=== PATIENT | male | born 1985 | race Two or more races ===

== ENCOUNTER 2024-02-16 16:06 | Emergency (ER) | payer MEDICAID ==
[~2024-02-16] VITALS: Ht 188 cm; Wt 136.1 kg
[2024-02-16] MEDS ORDERED: LORAZEPAM INJ 2 MG/ML VIAL ONE (17:25)
[2024-02-16] MEDS: LORAZEPAM 4 MG/ML VIAL IV ONE (17:29)
[2024-02-16 17:38] LABS: BASOPHILS % (AUTO) 0.7 % (0.0-2.0); EOSINOPHILS % (AUTO) 0.8 % (0.0-6.0); HEMATOCRIT 31 % (39-51); HEMOGLOBIN 9.8 g/dL (13.5-17.5); LYMPHOCYTES # (AUTO) 0.9 K/uL (0.8-4.8); LYMPHOCYTES % (AUTO) 16.6 % (20.0-44.0); MEAN CORPUSCULAR HEMOGLOBIN 28 PG (26.0-33.0); MEAN CORPUSCULAR HGB CONC 32 g/dl (31.0-36.0); MEAN CORPUSCULAR VOLUME 86 fL (80-96); MONOCYTES # (AUTO) 0.5 K/uL (0.1-1.30); MONOCYTES % (AUTO) 8.8 % (2.0-12.0); NEUTROPHILS % (AUTO) 73.1 % (43.0-81.0); PLATELET COUNT (AUTO) 264 K/uL (150-450); RED BLOOD CELL COUNT(AUTO) 3.56 MIL/uL (4.5-6.0); RED CELL DISTRIBUTION WIDTH 15.6 % (11.5-15.0); WHITE BLOOD COUNT (AUTO) 5.5 K/uL (4.3-11.0)
[2024-02-16 17:49] LABS: CALCIUM, SERUM 7.9 mg/dL (8.5-10.1); CARBON DIOXIDE 26 mmol/L (21-32); CHLORIDE 100 mmol/L (98-107); CREATININE 0.6 mg/dL (0.6-1.3); GLUCOSE 91 mg/dL (74-106); POTASSIUM 3.6 mmol/L (3.5-5.1); SODIUM SERUM 138 mmol/L (136-145); UREA NITROGEN, BLOOD 4 mg/dL (7-18)
[2024-02-16 19:21] VITALS: BP 124/74; TEMP 98; O2SAT 97
== END 2024-02-16 19:21 | disposition home or self-care (01) ==
LOC: ER 16:25
DX: R07.9 Chest pain, unspecified (principal); F41.9 Anxiety disorder, unspecified; F14.10 Cocaine abuse, uncomplicated; E11.9 Type 2 diabetes mellitus without complications; I10 Essential (primary) hypertension; J45.909 Unspecified asthma, uncomplicated; F17.200 Nicotine dependence, unspecified, uncomplicated; Z79.01 Long term (current) use of anticoagulants
CPT/HCPCS: 99285; 96374; 71045; 93005; 85025; 80048; 36415; 84484; J2060 ×2; J7060

== ENCOUNTER 2024-02-23 10:32 | Emergency (ER) | payer MEDICAID ==
[~2024-02-23] VITALS: Ht 188 cm; Wt 142.4 kg
[2024-02-23] MEDS ORDERED: ONDANSETRON 4 MG TAB.RAPDIS ONE (10:57)
[2024-02-23] MEDS: ONDANSETRON 4 MG TAB.RAPDIS SL ONE (10:58)
[2024-02-23] MEDS ORDERED: HALOPERIDOL LACTATE INJ 5 MG/ML VIAL ONE (11:33)
[2024-02-23 11:38] LABS: BASOPHILS % (AUTO) 0.8 % (0.0-2.0); EOSINOPHILS # (AUTO) 0.1 K/uL (0.0-0.7); EOSINOPHILS % (AUTO) 2.5 % (0.0-6.0); HEMATOCRIT 32 % (39-51); HEMOGLOBIN 10.4 g/dL (13.5-17.5); LYMPHOCYTES # (AUTO) 1.4 K/uL (0.8-4.8); MEAN CORPUSCULAR HEMOGLOBIN 27 PG (26.0-33.0); MEAN CORPUSCULAR HGB CONC 32 g/dl (31.0-36.0); MEAN CORPUSCULAR VOLUME 85 fL (80-96); MONOCYTES # (AUTO) 0.4 K/uL (0.1-1.30); MONOCYTES % (AUTO) 8.2 % (2.0-12.0); NEUTROPHILS % (AUTO) 60.5 % (43.0-81.0); PLATELET COUNT (AUTO) 264 K/uL (150-450); RED CELL DISTRIBUTION WIDTH 15.8 % (11.5-15.0); WHITE BLOOD COUNT (AUTO) 4.9 K/uL (4.3-11.0)
[2024-02-23] MEDS: HALOPERIDOL LACTATE INJ 5 MG/ML VIAL IV ONE (11:38)
[2024-02-23 11:54] LABS: APPEARANCE,URINE CLEAR (CLEAR); BILIRUBIN,URINE NEGATIVE (NEGATIVE); BLOOD, URINE NEGATIVE Ery/uL (NEGATIVE); COLOR,URINE YELLOW (YELLOW); KETONES,URINE NEGATIVE (NEGATIVE); LEUKOCYTE ESTERASE ,URINE NEGATIVE (NEGATIVE); NITRITE, URINE NEGATIVE (NEGATIVE); PROTEIN,URINE NEGATIVE (NEGATIVE); UGLUCOSE NEGATIVE (NEGATIVE); UROBILINOGEN,URINE 0.2 EU/dL (0.2)
[2024-02-23 12:01] LABS: INR 1.21 (0.91-1.10); PARTIAL THROMBOPLASTIN TIME 28.7 SEC (24.3-34.3); PROTHROMBIN TIME 12.7 SECS (9.2-11.1)
[2024-02-23 12:05] LABS: ALBUMIN 3.2 g/dL (3.4-5.0); BILIRUBIN,DIRECT 0.5 mg/dL (0.0-0.2); CALCIUM, SERUM 8.4 mg/dL (8.5-10.1); CREATININE 0.6 mg/dL (0.6-1.3); POTASSIUM 3.4 mmol/L (3.5-5.1); TOTAL PROTEIN, SERUM 8.9 g/dL (6.4-8.2)
[2024-02-23] MEDS: KETAMINE HCL(200MG/20ML) 10 MG/ML VIAL IV ONE (12:13)
[2024-02-23] MEDS ORDERED: KETOROLAC TROMETHAMINE 15 MG/ML VIAL ONE (13:54)
[2024-02-23] MEDS: KETOROLAC TROMETHAMINE 15 MG/ML VIAL IV ONE (13:59)
[2024-02-23 17:36] VITALS: BP 131/77; TEMP 98.8; O2SAT 98
[2024-02-23] MEDS ORDERED: PANT40TA2 PO (18:59)
[2024-02-23] MEDS ORDERED: TRIA1CAP20 PO (18:59)
[2024-02-23] MEDS ORDERED: GABA-532 PO (18:59)
[2024-02-23] MEDS ORDERED: PREG100C PO (18:59)
[2024-02-23] MEDS ORDERED: ENOX40DI SQ (18:59)
[2024-02-23] MEDS ORDERED: METH10TA2 PO (18:59)
[2024-02-23] MEDS ORDERED: TRAM50TA2 PO (18:59)
[2024-02-23] MEDS ORDERED: CARI350T PO (18:59)
[2024-02-23 21:24] LABS: AMPHETAMINE, URINE NEGATIVE (NEGATIVE); BARBITURATE, URINE NEGATIVE (NEGATIVE); BENZODIAZEPINE, URINE NEGATIVE (NEGATIVE); CANNABINOID, URINE NEGATIVE (NEGATIVE); OPIATE, URINE NEGATIVE (NEGATIVE); PHENCYCLIDINE SCREEN,URINE NEGATIVE (NEGATIVE)
[2024-02-23 21:26] LABS: COCCAINE, URINE POSITIVE (NEGATIVE)
== END 2024-02-23 21:55 | disposition home or self-care, planned readmission (81) ==
LOC: ER 10:54 → MED 21:44 → UNDOADMIN 21:44 → ER 21:55 → UNDODISIN 02-24
DX: R10.13 Epigastric pain (principal); R11.2 Nausea with vomiting, unspecified; F14.10 Cocaine abuse, uncomplicated; I10 Essential (primary) hypertension; E11.9 Type 2 diabetes mellitus without complications; J45.909 Unspecified asthma, uncomplicated; Z20.822 Contact with and (suspected) exposure to COVID-19
CPT/HCPCS: 99285; 74176; 96374; 96375; 87426; 85025; 80048; 83690; 80076; 36415; 85730; 80307; 81003; J1630; J7030; Q0162; J1885; G0378

== ENCOUNTER 2024-07-15 09:54 | Emergency (ER) | payer MEDICAID ==
[~2024-07-15] VITALS: Ht 185.4 cm; Wt 142.0 kg
[~2024-07-15 09:54] MED LIST: CARI350T PO; ENOX40DI SQ; GABA-532 PO; METH10TA2 PO; PANT40TA2 PO; PREG100C PO; TRAM50TA2 PO; TRIA1CAP20 PO
[2024-07-15] MEDS ORDERED: FOLIC ACID 1 MG TABLET ONE (10:30)
[2024-07-15] MEDS ORDERED: LORAZEPAM INJ 2 MG/ML VIAL ONE (10:31)
[2024-07-15 10:38] LABS: BASOPHILS % (AUTO) 0.6 % (0.0-2.0); EOSINOPHILS % (AUTO) 0.2 % (0.0-6.0); HEMATOCRIT 35 % (39-51); HEMOGLOBIN 11.1 g/dL (13.5-17.5); LYMPHOCYTES # (AUTO) 0.9 K/uL (0.8-4.8); LYMPHOCYTES % (AUTO) 13.3 % (20.0-44.0); MEAN CORPUSCULAR HEMOGLOBIN 25 PG (26.0-33.0); MEAN CORPUSCULAR HGB CONC 32 g/dl (31.0-36.0); MEAN CORPUSCULAR VOLUME 78 fL (80-96); MONOCYTES # (AUTO) 0.4 K/uL (0.1-1.30); MONOCYTES % (AUTO) 6.3 % (2.0-12.0); NEUTROPHILS # (AUTO) 5.4 K/uL (1.8-8.9); NEUTROPHILS % (AUTO) 79.6 % (43.0-81.0); PLATELET COUNT (AUTO) 208 K/uL (150-450); RED BLOOD CELL COUNT(AUTO) 4.47 MIL/uL (4.5-6.0); RED CELL DISTRIBUTION WIDTH 22.8 % (11.5-15.0); WHITE BLOOD COUNT (AUTO) 6.8 K/uL (4.3-11.0)
[2024-07-15 10:43] LABS: CALCIUM, SERUM 8.8 mg/dL (8.5-10.1); CREATININE 0.9 mg/dL (0.6-1.3)
[2024-07-15] MEDS: LORAZEPAM INJ 2 MG/ML VIAL IV ONE (10:43)
[2024-07-15] MEDS: IV NS 0.9% 1,000 ML BAG IV ONE (10:43)
[2024-07-15] MEDS: FOLIC ACID 1 MG TABLET PO ONE (10:44)
[2024-07-15 10:49] LABS: ALBUMIN 3.7 g/dL (3.4-5.0); BILIRUBIN,DIRECT 0.6 mg/dL (0.0-0.2); BILIRUBIN,TOTAL 1.1 mg/dL (0.2-1.0); TOTAL PROTEIN, SERUM 8.5 g/dL (6.4-8.2)
[2024-07-15] MEDS: Thiamine 100 MG in IV D5W 50 ML IV SCH (11:18)
[2024-07-15 12:50] VITALS: BP 101/85; TEMP 98.2; O2SAT 99
== END 2024-07-15 12:51 | disposition home or self-care (01) ==
LOC: ER 09:57
DX: F41.9 Anxiety disorder, unspecified (principal); F10.10 Alcohol abuse, uncomplicated; Y90.9 Presence of alcohol in blood, level not specified; E11.9 Type 2 diabetes mellitus without complications; E86.0 Dehydration; F17.200 Nicotine dependence, unspecified, uncomplicated; I10 Essential (primary) hypertension; J45.909 Unspecified asthma, uncomplicated; Z79.899 Other long term (current) drug therapy; Z60.2 Problems related to living alone
CPT/HCPCS: 99284; 96365; 96375; 93005; 85025; 80048; 83690; 80076; 36415; J2060; J7060; J3411

== ENCOUNTER 2024-10-03 23:30 | Emergency (ER) | payer MEDICAID ==
[~2024-10-03] VITALS: Ht 188 cm; Wt 145.1 kg
[2024-10-04 06:39] VITALS: BP 108/62; TEMP 98; O2SAT 96
== END 2024-10-04 06:40 | disposition home or self-care (01) ==
LOC: ER 23:39
DX: F10.129 Alcohol abuse with intoxication, unspecified (principal); F17.200 Nicotine dependence, unspecified, uncomplicated; Z79.899 Other long term (current) drug therapy; Z59.00 Homelessness unspecified; Z60.2 Problems related to living alone; Y90.9 Presence of alcohol in blood, level not specified
CPT/HCPCS: 82962-TC; 98960

== ENCOUNTER 2025-02-19 15:41 | Inpatient (IN) | payer MEDICAID ==
[~2025-02-19] VITALS: Ht 188 cm; Wt 137.0 kg
[2025-02-19] MEDS: IV NS 0.9% 1,000 ML BAG IV ONE (16:30)
[2025-02-19] MEDS: ONDANSETRON HCL/PF 4 MG/2 ML VIAL IVP ONE (16:40)
[2025-02-19] MEDS ORDERED: MORPHINE SULFATE INJ 4 MG/ML DISP.SYRIN ONE (16:40)
[2025-02-19] MEDS ORDERED: ONDANSETRON HCL/PF 4 MG/2 ML VIAL ONE (16:40)
[2025-02-19] MEDS: MORPHINE SULFATE INJ 2 MG/ML DISP.SYRIN IV ONE (16:45)
[2025-02-19 16:50] LABS: PLATELET COUNT (AUTO) 255 K/uL (150-450); RED BLOOD CELL COUNT(AUTO) 4.44 MIL/uL (4.5-6.0); RED CELL DISTRIBUTION WIDTH 19.8 % (11.5-15.0); WHITE BLOOD COUNT (AUTO) 4.8 K/uL (4.3-11.0)
[2025-02-19] MEDS: CEFEPIME 1 GM in IV D5W 50 ML IV ONE (17:00)
[2025-02-19 17:04] LABS: INR 1.18 (0.91-1.10)
[2025-02-19 17:11] LABS: LACTIC ACID 2.3 mmol/L (0.4-2.0)
[2025-02-19 17:12] LABS: CALCIUM, SERUM 8.0 mg/dL (8.5-10.1); CREATININE 0.9 mg/dL (0.6-1.3); SODIUM SERUM 138 mmol/L (136-145); UREA NITROGEN, BLOOD 6 mg/dL (7-18)
[2025-02-19 17:17] LABS: ASPARTATE AMINOTRANSFERASE 34 U/L (15-37); TOTAL PROTEIN, SERUM 8.5 g/dL (6.4-8.2)
[2025-02-19] MEDS: VANCOMYCIN 1 GM in IV D5W 250 ML IV ONE (17:30)
[2025-02-19 17:52] LABS: APPEARANCE,URINE CLEAR (CLEAR); BLOOD, URINE NEGATIVE Ery/uL (NEGATIVE); LEUKOCYTE ESTERASE ,URINE NEGATIVE (NEGATIVE); NITRITE, URINE NEGATIVE (NEGATIVE); UGLUCOSE NEGATIVE (NEGATIVE)
[2025-02-19 22:30] VITALS: BP 141/81; TEMP 97.9; O2SAT 97
[2025-02-19] MEDS ORDERED: ACETAMINOPHEN 325 MG TABLET PO PRN (23:00)
[2025-02-19] MEDS ORDERED: DOSING PER PHARMACY-VANCOMYCIN IV XX PRN (23:00)
[2025-02-19] MEDS: HYDROCODONE/APAP 10/325MG TABLET PO PRN (23:23)
[2025-02-19] MEDS ORDERED: VANCOMYCIN 1 GM /D5W 250 ML PB IV ONE (23:33)
[2025-02-19] MEDS ORDERED: PIPERACI/TAZO 3.375GM/D5W 50ML PB IV ONE (23:33)
[2025-02-19] MEDS: PIPERACILLIN /TAZOBACTAM 3.375 G in IV D5W 50 ML IV SCH (23:42)
[2025-02-20] MEDS: ONDANSETRON HCL/PF 4 MG/2 ML VIAL IV PRN (00:04)
[2025-02-20] MEDS: VANCOMYCIN 1 GM in IV D5W 250 ML IV ONE (00:26)
[2025-02-20] MEDS: LORAZEPAM 1 MG TABLET PO PRN ×2 (01:53→17:52)
[2025-02-20] MEDS ORDERED: PIPERACI/TAZO 3.375GM/D5W 50ML PB IV ONE (05:32)
[2025-02-20 07:02] LABS: LDL 92.0 mg/dL (0-99)
[2025-02-20 07:06] LABS: CALCIUM, SERUM 7.9 mg/dL (8.5-10.1); CREATININE 0.9 mg/dL (0.6-1.3); SODIUM SERUM 140.0 mmol/L (136-145); UREA NITROGEN, BLOOD 5.0 mg/dL (7-18)
[2025-02-20 07:08] LABS: PLATELET COUNT (AUTO) 219 K/uL (150-450); RED BLOOD CELL COUNT(AUTO) 4.39 MIL/uL (4.5-6.0); RED CELL DISTRIBUTION WIDTH 19.2 % (11.5-15.0); WHITE BLOOD COUNT (AUTO) 3.3 K/uL (4.3-11.0)
[2025-02-20 08:00] VITALS: BP 136/83; TEMP 98.1; O2SAT 97
[2025-02-20] MEDS: VANCOMYCIN HCL 1.25 GM in IV D5W 250 ML IV SCH (08:24)
[2025-02-20] MEDS ORDERED: LORAZEPAM INJ 2 MG/ML VIAL IV PRN (09:00)
[2025-02-20] MEDS: ENOXAPARIN SODIUM 40 MG/0.4 ML DISP.SYRIN SQ SCH (09:21)
[2025-02-20] MEDS: PANTOPRAZOLE 40 MG TABLET.DR PO SCH (09:22)
[2025-02-20] MEDS: FOLIC ACID 1 MG TABLET PO SCH (09:22)
[2025-02-20] MEDS: PREGABALIN 100 MG CAPSULE PO SCH (09:22)
[2025-02-20] MEDS: THIAMINE HCL 100 MG TABLET PO SCH (09:22)
[2025-02-20] MEDS: TRAMADOL HCL 50 MG TABLET PO SCH (09:23)
[2025-02-20] MEDS: TRIAMTERENE/HYDROCHLOROTHIAZID (37.5/25MG) 1 UDCAP PO SCH (09:41)
[2025-02-20] MEDS: CARISOPRODOL 350 MG TABLET PO SCH (09:41)
[2025-02-20] MEDS: PIPERACILLIN /TAZOBACTAM 3.375 G in IV D5W 50 ML IV SCH (11:32)
[2025-02-20] MEDS: METHADONE HCL 10 MG TABLET PO SCH (14:51)
[2025-02-20 16:00] VITALS: BP 143/89; TEMP 98.2; O2SAT 98
[2025-02-20 20:00] VITALS: BP 140/83; TEMP 98.2; O2SAT 98
[2025-02-20] MEDS: HYDROCODONE/APAP 5/325MG TABLET PO PRN (22:59)
[2025-02-21 07:02] LABS: IRON, SERUM 258 ug/dl (50-175)
[2025-02-21 07:03] LABS: LDL 107 mg/dL (0-99)
[2025-02-21 07:08] LABS: CALCIUM, SERUM 8.5 mg/dL (8.5-10.1); CREATININE 1.0 mg/dL (0.6-1.3); SODIUM SERUM 136.0 mmol/L (136-145); UREA NITROGEN, BLOOD 9.0 mg/dL (7-18)
[2025-02-21 08:00] VITALS: BP 130/87; TEMP 98.4; O2SAT 99
[2025-02-21] MEDS: VANCOMYCIN 750 MG in IV D5W 250 ML IV SCH (08:22)
[2025-02-21] MEDS: NICOTINE PATCH (7MG) 7 MG PATCH.TD24 TD SCH (14:10)
[2025-02-21 16:00] VITALS: BP 143/86; TEMP 98.2; O2SAT 99
[2025-02-21] MEDS: MUPIROCIN OINT 2% 22 GM TUBE TP SCH (17:09)
[2025-02-21 20:00] VITALS: BP 115/85; TEMP 97.9; O2SAT 97
[2025-02-21] MEDS: ZOLPIDEM TARTRATE 5 MG TABLET PO PRN (23:32)
[2025-02-22 07:55] LABS: CALCIUM, SERUM 8.5 mg/dL (8.5-10.1); CREATININE 1.1 mg/dL (0.6-1.3); SODIUM SERUM 137.0 mmol/L (136-145); UREA NITROGEN, BLOOD 12.0 mg/dL (7-18)
[2025-02-22 08:00] VITALS: BP 141/75; TEMP 98.1; O2SAT 98
[2025-02-22 16:00] VITALS: BP 115/94; TEMP 97.7; O2SAT 99
[2025-02-22 20:00] VITALS: BP 127/78; TEMP 98.2; O2SAT 98
[2025-02-23 07:00] VITALS: BP 131/82; TEMP 98.1; O2SAT 100
[2025-02-23 07:16] LABS: CALCIUM, SERUM 8.7 mg/dL (8.5-10.1); CREATININE 0.9 mg/dL (0.6-1.3); SODIUM SERUM 137.0 mmol/L (136-145); UREA NITROGEN, BLOOD 13.0 mg/dL (7-18)
[2025-02-23 07:20] LABS: INR 1.09 (0.91-1.10)
[2025-02-23 16:00] VITALS: BP 128/77; TEMP 97.7; O2SAT 99
[2025-02-23 20:00] VITALS: BP 124/74; TEMP 98.4; O2SAT 100
[2025-02-24 06:58] LABS: CALCIUM, SERUM 8.6 mg/dL (8.5-10.1); CREATININE 0.8 mg/dL (0.6-1.3); SODIUM SERUM 139.0 mmol/L (136-145); UREA NITROGEN, BLOOD 11.0 mg/dL (7-18)
[2025-02-24 08:00] VITALS: BP 127/79; TEMP 97.9; O2SAT 98
[2025-02-24] MEDS: HYDROMORPHONE 1 MG/1 ML DISP.SYRIN IV PRN (09:47)
[2025-02-24] MEDS ORDERED: FENTANYL PF 100MCG/2ML AMPUL ONE ×2 (11:33→12:54)
[2025-02-24] MEDS ORDERED: MIDAZOLAM HCL 2 MG/2ML VIAL ONE ×2 (11:34→11:48)
[2025-02-24] MEDS ORDERED: LIDOCAINE HCL/MPF 1% 30 ML VIAL IJ ONE (11:39)
[2025-02-24] MEDS ORDERED: BUPIVACAINE 0.5 % PF 150 MG/30 ML VIAL ONE (11:39)
[2025-02-24] MEDS ORDERED: BACITRACIN/POLYMYXIN B 15 GM TUBE TP ONE (12:08)
[2025-02-24 16:00] VITALS: BP 134/87; TEMP 97.7; O2SAT 99
[2025-02-24 20:00] VITALS: BP 127/79; TEMP 98.2; O2SAT 96
[2025-02-25 07:48] LABS: PLATELET COUNT (AUTO) 181 K/uL (150-450); RED BLOOD CELL COUNT(AUTO) 4.48 MIL/uL (4.5-6.0); RED CELL DISTRIBUTION WIDTH 19.8 % (11.5-15.0); WHITE BLOOD COUNT (AUTO) 7.6 K/uL (4.3-11.0)
[2025-02-25 07:49] LABS: CALCIUM, SERUM 8.8 mg/dL (8.5-10.1); CREATININE 0.9 mg/dL (0.6-1.3); SODIUM SERUM 135.0 mmol/L (136-145); UREA NITROGEN, BLOOD 11.0 mg/dL (7-18)
[2025-02-25 08:00] VITALS: BP 121/73; TEMP 98.4; O2SAT 100
[2025-02-25 16:00] VITALS: BP 108/79; TEMP 97.8; O2SAT 97
[2025-02-25 20:00] VITALS: BP 115/79; TEMP 98.1; O2SAT 96
[2025-02-26 07:28] LABS: CALCIUM, SERUM 8.7 mg/dL (8.5-10.1); CREATININE 0.8 mg/dL (0.6-1.3); UREA NITROGEN, BLOOD 12.0 mg/dL (7-18)
[2025-02-26 07:34] LABS: SODIUM SERUM 138.0 mmol/L (136-145)
[2025-02-26] MEDS ORDERED: DOSING PER PHARMACY-CEFEPIME IVPB XX PRN (12:30)
[2025-02-26] MEDS: CEFEPIME 2 GM in IV D5W 100 ML IV SCH (13:46)
[2025-02-26 20:00] VITALS: BP_SYST 118; BP_DIAS 75; BP_DIAS 78; TEMP 98.1; O2SAT 99
[2025-02-27 06:20] LABS: PLATELET COUNT (AUTO) 199 K/uL (150-450); RED BLOOD CELL COUNT(AUTO) 4.37 MIL/uL (4.5-6.0); RED CELL DISTRIBUTION WIDTH 19.7 % (11.5-15.0); WHITE BLOOD COUNT (AUTO) 5.0 K/uL (4.3-11.0)
[2025-02-27 06:35] LABS: CALCIUM, SERUM 8.9 mg/dL (8.5-10.1); CREATININE 0.9 mg/dL (0.6-1.3); SODIUM SERUM 137.0 mmol/L (136-145); UREA NITROGEN, BLOOD 15.0 mg/dL (7-18)
[2025-02-27 07:30] VITALS: BP 129/74; TEMP 98.4; O2SAT 98
[2025-02-27 16:00] VITALS: BP_SYST 116; BP_SYST 144; BP_DIAS 80; BP_DIAS 95; TEMP 97.5; TEMP 98.1; O2SAT 100; O2SAT 93
[2025-02-27] MEDS: CEFTRIAXONE 2 G in IV D5W 100 ML IV SCH (16:37)
[2025-02-27] MEDS: METRONIDAZOLE 500MG/ NS 100ML 500 MG in PREMIX 1 EA IV SCH (17:17)
[2025-02-27 20:00] VITALS: BP 116/88; TEMP 97.9; O2SAT 98
[2025-02-28 07:51] LABS: CALCIUM, SERUM 9.1 mg/dL (8.5-10.1); CREATININE 0.9 mg/dL (0.6-1.3); SODIUM SERUM 137.0 mmol/L (136-145); UREA NITROGEN, BLOOD 13.0 mg/dL (7-18)
[2025-02-28 08:00] VITALS: BP 116/71; TEMP 98.4; O2SAT 98
[2025-02-28] MEDS ORDERED: VANC750F2 IV (12:26)
[2025-02-28] MEDS ORDERED: ERTA1VIA IV (12:26)
[2025-02-28] MEDS ORDERED: VANC1VIA34 XX (12:26)
[2025-02-28] MEDS: CEFTRIAXONE 2 G in IV D5W 100 ML IV SCH (15:15)
[2025-02-28 16:00] VITALS: BP 120/87; TEMP 98.2; O2SAT 95
[2025-02-28 20:00] VITALS: BP 122/78; TEMP 97.5; O2SAT 99
[2025-03-01 07:57] LABS: CALCIUM, SERUM 8.8 mg/dL (8.5-10.1); CREATININE 1.0 mg/dL (0.6-1.3); SODIUM SERUM 134.0 mmol/L (136-145); UREA NITROGEN, BLOOD 15.0 mg/dL (7-18)
[2025-03-01 08:00] VITALS: BP 123/71; TEMP 98.6; O2SAT 98
[2025-03-01 09:00] VITALS: BP 123/71
== END 2025-03-01 15:30 | DRG 344 ==
LOC: ER 15:47 → MED 21:17
PROVIDERS: ADMIT Internal Medicine; ATTEND Internal Medicine
PROC: 0QBP0ZX Excision of Left Metatarsal, Open Approach, Diagnostic (ICD-10-PCS; 2025-02-24)
PROC: 0QBR0ZX Excision of Left Toe Phalanx, Open Approach, Diagnostic (ICD-10-PCS; 2025-02-24)
PROC: 0JBR0ZZ Excision of Left Foot Subcutaneous Tissue and Fascia, Open Approach (ICD-10-PCS; principal; 2025-02-24 11:30)
PROC: 02HV33Z Insertion of Infusion Device into Superior Vena Cava, Percutaneous Approach (ICD-10-PCS; 2025-02-26)
DX: M86.8X7 Other osteomyelitis, ankle and foot (principal); L03.116 Cellulitis of left lower limb; D50.9 Iron deficiency anemia, unspecified; F10.20 Alcohol dependence, uncomplicated; D72.819 Decreased white blood cell count, unspecified; E66.9 Obesity, unspecified; I87.2 Venous insufficiency (chronic) (peripheral); I73.9 Peripheral vascular disease, unspecified; G62.9 Polyneuropathy, unspecified; Z89.422 Acquired absence of other left toe(s); Z81.8 Family history of other mental and behavioral disorders; L97.529 Non-pressure chronic ulcer of other part of left foot with unspecified severity; L30.9 Dermatitis, unspecified; I87.8 Other specified disorders of veins; J45.909 Unspecified asthma, uncomplicated; I10 Essential (primary) hypertension; Z79.01 Long term (current) use of anticoagulants; Z79.899 Other long term (current) drug therapy; Z72.0 Tobacco use
CPT/HCPCS: 36415; 71045-TC; 73630-TC; 80048-TC; 80061-TC; 80076-TC; 80202-TC; 83540-TC; 83605-TC; 85025-TC; 85610-TC; 85730-TC; 87040-TC; 87070-TC; 87075-TC; 87086-TC; 87186-TC; 88305-TC; 88311-TC; 93971-TC; 97110-TC; 97116-TC; 97530-TC; A2007; A4216; A4223; A6209; A6403; G0378; J0690; J0692; J0696; J1100; J1171; J1650; J1885; J2250; J2270; J2405; J2543; J2704; J3010; J3373; J3374; J3490; J7030; J7040; J7050; J7060

== ENCOUNTER 2025-03-14 20:46 | Emergency (ER) | payer MEDICAID, OTHER ==
[~2025-03-14] VITALS: Ht 177.8 cm; Wt 137.0 kg
[~2025-03-14 20:46] MED LIST changes: +ERTA1VIA IV; +VANC1VIA34 XX; +VANC750F2 IV
[2025-03-14] MEDS ORDERED: ONDANSETRON HCL/PF 4 MG/2 ML VIAL ONE (21:10)
[2025-03-14] MEDS ORDERED: FAMOTIDINE/PF INJ 20 MG/2 ML VIAL IV ONE (21:11)
[2025-03-14] MEDS: ONDANSETRON HCL/PF - ER 4 MG/2 ML VIAL IV ONE (21:21)
[2025-03-14] MEDS: IV NS 0.9% 1,000 ML BAG IV ONE ×2 (21:21→22:53)
[2025-03-14] MEDS: FAMOTIDINE/PF INJ 20 MG/2 ML VIAL IV ONE ×2 (21:21→22:53)
[2025-03-14 21:25] LABS: PLATELET COUNT (AUTO) 303 K/uL (150-450); RED BLOOD CELL COUNT(AUTO) 4.47 MIL/uL (4.5-6.0); RED CELL DISTRIBUTION WIDTH 18.5 % (11.5-15.0); WHITE BLOOD COUNT (AUTO) 9.9 K/uL (4.3-11.0)
[2025-03-14 21:33] LABS: CALCIUM, SERUM 8.6 mg/dL (8.5-10.1); CREATININE 0.8 mg/dL (0.6-1.3); SODIUM SERUM 138 mmol/L (136-145); UREA NITROGEN, BLOOD 14 mg/dL (7-18)
[2025-03-14 21:39] LABS: ALCOHOL, BLOOD < 3 mg/dL (0-10); ASPARTATE AMINOTRANSFERASE 27 U/L (15-37); TOTAL PROTEIN, SERUM 8.1 g/dL (6.4-8.2)
[2025-03-14] MEDS ORDERED: METOCLOPRAMIDE HCL 10 MG/2 ML VIAL ONE (22:40)
[2025-03-14] MEDS ORDERED: DICYCLOMINE HCL 10 MG CAPSULE PO ONE (22:41)
[2025-03-14] MEDS: PANTOPRAZOLE 40 MG VIAL IV ONE (22:53)
[2025-03-14] MEDS: METOCLOPRAMIDE HCL 10 MG/2 ML VIAL IV ONE (22:53)
[2025-03-14] MEDS: KETOROLAC TROMETHAMINE 15 MG/ML VIAL IV ONE (22:53)
[2025-03-14] MEDS: DICYCLOMINE HCL 10 MG CAPSULE PO ONE (22:53)
[2025-03-15] MEDS ORDERED: KETO10TA2 PO (00:42)
[2025-03-15] MEDS ORDERED: DICY10CA37 PO (00:42)
[2025-03-15] MEDS ORDERED: PANT40TA49 PO (00:42)
[2025-03-15 01:00] LABS: APPEARANCE,URINE CLEAR (CLEAR); BLOOD, URINE NEGATIVE Ery/uL (NEGATIVE); LEUKOCYTE ESTERASE ,URINE NEGATIVE (NEGATIVE); NITRITE, URINE NEGATIVE (NEGATIVE); UGLUCOSE NEGATIVE (NEGATIVE)
[2025-03-15] MEDS ORDERED: DICYCLOMINE HCL 10 MG CAPSULE PO ONE (05:06)
[2025-03-15] MEDS ORDERED: ONDANSETRON 4 MG TAB.RAPDIS ONE (05:07)
[2025-03-15] MEDS: DICYCLOMINE HCL 10 MG CAPSULE PO ONE (05:08)
[2025-03-15] MEDS: ONDANSETRON 4 MG TAB.RAPDIS SL ONE (05:08)
[2025-03-15 06:00] VITALS: BP 121/71; TEMP 98.2; O2SAT 98
== END 2025-03-15 06:01 | disposition home health service (06) ==
LOC: ER 20:48
DX: K52.9 Noninfective gastroenteritis and colitis, unspecified (principal); R11.2 Nausea with vomiting, unspecified; I87.2 Venous insufficiency (chronic) (peripheral); I73.9 Peripheral vascular disease, unspecified; M86.9 Osteomyelitis, unspecified; F17.200 Nicotine dependence, unspecified, uncomplicated; Z79.899 Other long term (current) drug therapy; Z90.49 Acquired absence of other specified parts of digestive tract
CPT/HCPCS: 99285; 96374; 96361; 96375; 96376; 85025; 83690; 81003; 36415; 80053; 80320; J1308 ×2; J2765; J2405 ×2; J2470; J1885; Q0162; G0480

== ENCOUNTER 2025-04-11 14:25 | Emergency (ER) | payer MEDICAID ==
[~2025-04-11] VITALS: Ht 172.7 cm; Wt 132.4 kg
[~2025-04-11 14:25] MED LIST changes: +DICY10CA37 PO; +KETO10TA2 PO; +PANT40TA49 PO
[2025-04-11] MEDS: IV NS 0.9% 500 ML BAG IV ONE (14:57)
[2025-04-11 15:13] LABS: PLATELET COUNT (AUTO) 194 K/uL (150-450); RED BLOOD CELL COUNT(AUTO) 4.54 MIL/uL (4.5-6.0); RED CELL DISTRIBUTION WIDTH 18.1 % (11.5-15.0); WHITE BLOOD COUNT (AUTO) 4.6 K/uL (4.3-11.0)
[2025-04-11 15:21] LABS: CALCIUM, SERUM 8.2 mg/dL (8.5-10.1); CREATININE 0.8 mg/dL (0.6-1.3); SODIUM SERUM 140 mmol/L (136-145); UREA NITROGEN, BLOOD 10 mg/dL (7-18)
[2025-04-11 15:34] LABS: NT-PRO BNP 247 pg/mL (0-125)
[2025-04-11] MEDS ORDERED: CT SWABBABLE VALVE TRANS SET 1 EA INFUS.SET MC ONE (16:02)
[2025-04-11] MEDS ORDERED: IOHEXOL-350 100 ML VIAL IV ONE (16:02)
[2025-04-11] MEDS ORDERED: IV NS 0.9% 250 ML IV ONE (16:02)
[2025-04-11] MEDS ORDERED: ENOXAPARIN SODIUM 60 MG/0.6 ML DISP.SYRIN SQ ONE (16:49)
[2025-04-11] MEDS ORDERED: ONDANSETRON HCL/PF 4 MG/2 ML VIAL ONE (16:50)
[2025-04-11] MEDS: ONDANSETRON HCL/PF 4 MG/2 ML VIAL IV ONE (16:53)
[2025-04-11] MEDS: ENOXAPARIN SODIUM 120 MG/0.8 ML DISP.SYRIN SQ ONE (16:54)
[2025-04-11 17:25] LABS: INR 1.21 (0.91-1.10)
[2025-04-11] MEDS ORDERED: MAG HYDROX/AL HYDROX/SIMETH 30 ML UDC PO PRN (23:00)
[2025-04-11] MEDS ORDERED: ONDANSETRON HCL/PF 4 MG/2 ML VIAL IVP PRN (23:00)
[2025-04-11] MEDS ORDERED: ZOLPIDEM TARTRATE 5 MG TABLET PO PRN (23:00)
[2025-04-11] MEDS ORDERED: ACETAMINOPHEN 325 MG TABLET PO PRN (23:00)
[2025-04-11] MEDS ORDERED: MAGNESIUM HYDROXIDE 30 ML UDC PO PRN (23:00)
[2025-04-11] MEDS ORDERED: Z GUARD REMEDY 4 OZ OINT TP PRN (23:00)
[2025-04-12 02:38] VITALS: BP 130/73; TEMP 98.2; O2SAT 97
[2025-04-12] MEDS ORDERED: APIXABAN 5 MG TABLET PO SCH (09:00)
[2025-04-12] MEDS ORDERED: TRIAMTERENE/HYDROCHLOROTHIAZID (37.5/25MG) 1 UDCAP PO SCH (09:00)
[2025-04-12] MEDS ORDERED: METHADONE HCL 10 MG TABLET PO SCH (09:00)
[2025-04-12] MEDS ORDERED: PREGABALIN 100 MG CAPSULE PO SCH (09:00)
[2025-04-12] MEDS ORDERED: DICYCLOMINE HCL 10 MG CAPSULE PO SCH (09:00)
[2025-04-12] MEDS ORDERED: TRAMADOL HCL 50 MG TABLET PO SCH (09:00)
[2025-04-12] MEDS ORDERED: PANTOPRAZOLE 40 MG TABLET.DR PO SCH ×2 (09:00)
== END 2025-04-12 02:39 ==
LOC: ER 14:54
DX: I26.99 Other pulmonary embolism without acute cor pulmonale (principal); R00.2 Palpitations; F17.200 Nicotine dependence, unspecified, uncomplicated; J45.909 Unspecified asthma, uncomplicated; Z90.49 Acquired absence of other specified parts of digestive tract; Z79.899 Other long term (current) drug therapy; Z98.890 Other specified postprocedural states
CPT/HCPCS: 99285; 93970; 96374; 71275; 93971; 71045; 93005; 85025; 80048; 36415; 84484 ×2; 85730; 83880; 96372; 93307; J2405; J7050; J7040; J1650 ×2; Q9967

== ENCOUNTER 2025-05-06 10:57 | Emergency (ER) | payer MEDICAID ==
[~2025-05-06] VITALS: Ht 188 cm; Wt 99.8 kg
[2025-05-06 12:18] LABS: PLATELET COUNT (AUTO) 319 K/uL (150-450); RED BLOOD CELL COUNT(AUTO) 4.43 MIL/uL (4.5-6.0); RED CELL DISTRIBUTION WIDTH 18.8 % (11.5-15.0); WHITE BLOOD COUNT (AUTO) 3.1 K/uL (4.3-11.0)
[2025-05-06 12:40] LABS: CALCIUM, SERUM 7.7 mg/dL (8.5-10.1); CREATININE 0.7 mg/dL (0.6-1.3); SODIUM SERUM 143 mmol/L (136-145); UREA NITROGEN, BLOOD 11 mg/dL (7-18)
[2025-05-06 12:44] LABS: ASPARTATE AMINOTRANSFERASE 40 U/L (15-37); TOTAL PROTEIN, SERUM 7.4 g/dL (6.4-8.2)
[2025-05-06] MEDS ORDERED: IOHEXOL-350 100 ML VIAL IV ONE (12:48)
[2025-05-06] MEDS ORDERED: IV NS 0.9% 250 ML IV ONE (12:48)
[2025-05-06] MEDS ORDERED: CT SWABBABLE VALVE TRANS SET 1 EA INFUS.SET MC ONE (12:48)
[2025-05-06 12:49] LABS: LACTIC ACID 3.1 mmol/L (0.4-2.0)
[2025-05-06] MEDS ORDERED: ONDANSETRON HCL/PF 4 MG/2 ML VIAL ONE (12:57)
[2025-05-06] MEDS: IV NS 0.9% 1,000 ML BAG IV ONE (13:23)
[2025-05-06] MEDS: ONDANSETRON HCL/PF 4 MG/2 ML VIAL IVP ONE (13:23)
[2025-05-06 15:44] VITALS: BP 150/89; TEMP 98; O2SAT 96
== END 2025-05-06 16:16 | disposition home or self-care (01) ==
LOC: ER 11:11
DX: R10.13 Epigastric pain (principal); R11.2 Nausea with vomiting, unspecified; R07.89 Other chest pain; I73.9 Peripheral vascular disease, unspecified; I87.2 Venous insufficiency (chronic) (peripheral); I51.9 Heart disease, unspecified; I26.99 Other pulmonary embolism without acute cor pulmonale; J45.909 Unspecified asthma, uncomplicated; F17.200 Nicotine dependence, unspecified, uncomplicated; Z79.01 Long term (current) use of anticoagulants; Z79.899 Other long term (current) drug therapy; Z88.5 Allergy status to narcotic agent; Z90.49 Acquired absence of other specified parts of digestive tract
CPT/HCPCS: 99285; 71275; 96374; 96361; 93005; 74177; 85025; 80048; 83605 ×2; 83690; 80076; 36415; 84484 ×2; J2405; J7030; J7050; Q9967